=== PATIENT | male | born 2000 | race Caucasian/White ===

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

== ENCOUNTER 2022-06-15 21:35 | Emergency (ER) | payer MEDICAID, SELFPAY ==
[2022-06-15 21:36] VITALS: BP 185/96; PULSE 94; RESP 16; TEMP 37.5; O2SAT 97; BMI 36.8
--- NOTE | 2022-06-15 21:52 | EDS_ITS ---
HPI HPI - GI History of Present Illness Chief Complaint: Abd Pain Narrative Narrative: 22-year-old male who denies significant past medical history presents with abdominal pain that he has had since 930 or 10:00 this morning, almost 12 hours ago. Is been relatively constant in the left lower quadrant to right lower quadrant. He denies any fever or chills. He is nauseated but has not vomited. The nausea waxes and wanes. He was able to take a nap today but when he woke up his abdominal pain became more intense. He describes it more as dull and achy on the left greater than right. States that he feels like he has to have a bowel movement but cannot. He denies any dysuria or hematuria. No prior abdominal surgeries. However, his mother states that her family is known for having the appendix on the wrong side or it being twisted. Currently, he states his nausea has improved. No exacerbating or alleviating factors. [facility] Medical History Chronic neck and back pain Knee pain Home Medications NK 05/04/20 [History Last Taken Unknown] Allergy/AdvReac Type Severity Reaction Status Date / Time Penicillins Allergy Hives Verified 06/15/22 21:39 Social History Smoking Status: Never smoker ROS ROS ED ROS Narrative Constitutional: No fever, no chills. HEENT: No sore throat. No neck pain. No loss of vision. No rhinorrhea. Cardiovascular: No chest pain. No palpitations. No pedal edema. Respiratory: No cough, no shortness of breath. Abdominal: Left lower quadrant greater than right lower quadrant abdominal pain. Positive nausea. No vomiting. Genitourinary: No dysuria. No hematuria. Musculoskeletal: No myalgias. No arthralgias. Neurologic: No headaches. No dizziness. No lightheadedness. Skin: No rash. No change in color. Psychiatric: No depression. No anxiety. EXAM Physical Exam Narrative Exam Narrative: Afebrile. Vital signs noted. HEENT: Normocephalic. Atraumatic. PERRL, EOMI. Neck soft and supple. No point tenderness or step off. Cardiovascular: Regular rate and rhythm. No murmurs, rubs, or gallops appreciated. Respiratory: No tachypnea. Lungs clear to auscultation bilaterally. Gastrointestinal: Abdomen soft, mild tenderness left lower quadrant to suprapubic, minimal right lower quadrant, negative Rovsing sign, no pain over McBurney's point, with normoactive bowel sounds. No rebound or guarding. Neurological: Awake. Alert. Nonfocal, nonlateralizing. Skin: No rash. Normal color. No pallor. Musculoskeletal: No pedal edema. Full range of motion extremities. Const Vital Signs: 06/15/22 21:36 Temperature 99.5 F H Temperature Source Temporal Pulse Rate 94 Respiratory Rate 16 Blood Pressure 185/96 H Blood Pressure Mean 125 Pulse Ox 97 Oxygen Delivery Method Room Air MDM MDM MDM Narrative Medical decision making narrative: Major concern is for appendicitis versus diverticulitis versus urinary tract infection. Patient has a low-grade temperature/fever of 99.5 ?F currently. Comprehensive work-up was pursued. He declined 6 or antinausea medication. I will obtain a CBC, BMP, urinalysis, and CT with IV contrast. I reviewed the patient's laboratory work. He has a normal white count of 9.0, hemoglobin slightly hemoconcentrated at 16.7 with hematocrit 45.5. Platelet count normal at 208. BMP shows BUN of 15 and normal creatinine of 1.03, glucose appropriately elevated at 120, normal anion gap of 8. Urinalysis is negative for infection, negative ketones, 0 WBCs and 0 RBCs. I received a call from the radiologist regarding the CT scan results. I had reviewed the films and did note polycystic kidney disease. Additionally, there is a 4 cm right renal mass which will require outpatient ultrasound follow-up closely. Radiologist stated that the appendix appeared normal. I had a discussion with the patient and his mother. He did not know that he had polycystic kidney disease. Additionally, I stressed the importance of follow-up with primary care for outpatient ultrasound with the patient. He states he currently does not have a primary care physician but wanted to see [facility] physicians. I will discuss the patient with the on-call physician, Dr. Shadia Nieves for outpatient follow-up. I feel he can be discharged safely home. His blood pressure is now 145/75. Return instructions to the emergency department were reviewed. Disposition is discharged home in stable condition. History & Record Review Discussion w/independent historian: Patient and Other (Mother) Lab Data Attestation: I reviewed the patient's lab results. Labs: Laboratory Results - last 24 hr 06/15/22 06/15/22 06/15/22 22:05 22:10 22:10 WBC 9.0 RBC 5.33 Hgb 16.7 H Hct 45.5 MCV 85.4 MCH 31.3 MCHC 36.7 H RDW Std Deviation 36.8 RDW Coeff of Angie 12.0 Plt Count 208 MPV 10.7 Immature Gran % (Auto) 0.200 Neut % (Auto) 78.7 H Lymph % (Auto) 12.8 L Giles % (Auto) 8.0 Eos % (Auto) 0.1 Baso % (Auto) 0.2 Absolute Neuts (auto) 7.1 Absolute Lymphs (auto) 1.15 Nucleated RBC % 0 Sodium 137 Potassium 3.7 Chloride 103 Carbon Dioxide 26.0 Anion Gap 8 BUN 15 Creatinine 1.03 Estim Creat Clear Calc 128.21 Est GFR (MDRD) Af Amer 117 Est GFR (MDRD) Non-Af 97 BUN/Creatinine Ratio 14.6 Glucose 120 H Calcium 9.1 Urine Color Yellow Urine Clarity Clear Urine pH 6.0 Ur Specific [place] 1.015 Urine Protein Negative Urine Glucose (UA) Normal Urine Ketones Negative Urine Occult Blood Negative Urine Nitrite Negative Urine Bilirubin Negative Urine Urobilinogen 1 H Ur Leukocyte Esterase Negative Urine RBC 0 SEEN Urine WBC 0 SEEN Ur Squamous Epith Cells 0 SEEN Urine Bacteria 0 SEEN Urine Mucus 0 SEEN Radiography Diagnostic Testing: Clinical Impression(s) from Imaging Studies Abdomen/Pelvis CT 06/15/22 21:52 IMPRESSION: 1. Indeterminate 4 cm cystic structure in the right kidney is RCC until proven otherwise. Recommend follow-up with renal ultrasound. 2. Polycystic kidneys. 3. Mild splenomegaly. Electronically Signed: Tylor Napoles MD at 22:53 EST , ADDENDUM: 06/15/22 2803 IMPRESSION: 1. Indeterminate 4 cm cystic structure in the right kidney is RCC until proven otherwise. Recommend follow-up with renal ultrasound. 2. Polycystic kidneys. 3. Mild splenomegaly. N.B. : The above Results were Read Back by Tylor Napoles MD to Jose Miguel Mcnair MD, and understanding confirmed on 06/15/2022 22:59:59 (ET). Electronically Signed: Tylor Napoles MD at 22:53 EST , Discharge Plan Triage Chief Complaint: Abd Pain ED Provider: Jose Miguel Mcnair Dx/Rx/DC Orders Clinical Impression: Abdominal pain, Polycystic kidney disease, Mass of right kidney Instructions: Kidney Problems, ED Tumor, Uncertain Cause, ED Abdominal Pain Unkn Cause Male... Prescriptions: No Action NK Primary Care Provider: Care Physician,Azul Primary Referrals: Ben Urena DO [Non-Staff] - Jing Nieves DO [Med Staff - [place] [facility]] - 5-7 Days Activity Restrictions/Additional Instructions: You had an abnormal CT finding. It appears that you have multiple cysts on your kidneys. Additionally, a right renal mass of approximately 4 cm was detected. You will require outpatient follow-up with an ultrasound. Please see your primary care provider regarding this. Do not neglect this CT finding. Disposition Disposition: Home, Self Care
--- NOTE | 2022-06-15 21:52 | CT_ITS ---
We are attempting to reach an attending provider to discuss findings. An addendum with communication details will be sent when the communication is complete. INDICATION: Abdominal Pain, left lower quadrant EXAMINATION: CT ABDOMEN AND PELVIS WITH CONTRAST - CT Abdomen And Pelvis W/ Contrast Injection TECHNIQUE: Helically acquired images were obtained of the abdomen and pelvis following IV contrast. A radiation dose optimization technique was used for this scan. IV Contrast dosage and agent: 100 mL Isovue-370 Oral contrast: None. COMPARISON: None. FINDINGS: LOWER CHEST: Lung bases are clear. No cardiomegaly or pericardial effusion. LIVER: Homogeneous. No focal mass. GALLBLADDER AND BILIARY TREE: No calcified gallstones. No gallbladder distension or wall edema. No intra- or extrahepatic biliary ductal dilation. PANCREAS: No focal cystic or solid mass. SPLEEN: Mild splenomegaly. ADRENAL GLANDS: No nodules. KIDNEYS AND URETERS: Normal renal size and position. Numerous bilateral cysts. A 4.2 cm right renal cyst measures 42 Hounsfield units on portal phase and delayed images. No hydronephrosis. PERITONEUM: No ascites or free air. No other fluid collection. BOWEL: No evidence of acute appendicitis. No stomach or bowel distension. No focal inflammatory change. LYMPH NODES: No enlarged mesenteric or retroperitoneal lymph nodes. VESSELS: Aorta is non-dilated. URINARY BLADDER: Unremarkable. REPRODUCTIVE ORGANS: No pelvic masses. ABDOMINAL WALL: No discrete abdominal or pelvic wall hernia. BONES: No lytic or blastic abnormality. CT/Abdomen/Pelvis W IV Cont ONLY IMPRESSION: 1. Indeterminate 4 cm cystic structure in the right kidney is RCC until proven otherwise. Recommend follow-up with renal ultrasound. 2. Polycystic kidneys. 3. Mild splenomegaly. Electronically Signed: Tylor Napoles MD at 22:53 EST ,
[2022-06-15 22:08] LABS: Bacteria 0 SEEN /hpf (None Seen); Mucous, Urine 0 SEEN /hpf (<or=2+); Red Blood Cells-Urine 0 SEEN /hpf (0-5); Squamous Epithelial Cells - UA 0 SEEN /hpf (0-5); White Blood Cells 0 SEEN /hpf (0-5)
[2022-06-15 22:13] LABS: Color, Urine Yellow (Yellow); Glucose, Dipstick Normal (Normal); Ketone-Dipstick Negative (Negative); Leukocyte Esterase-Dipstick Negative /ul (Negative); Nitrite-Dipstick Negative (Negative); Occult Blood-Urine Negative /ul (Negative); Protein-Dipstick Negative (Negative); Specific Gravity, Urine 1.015 (1.002-1.030); Urine Bilirubin Dipstick Negative (Negative); Urine Clarity Clear (Clear); Urine Urobilinogen 1 mg/dl (Normal)
[2022-06-15 22:15] LABS: Absolute Lymphocyte Count 1.15 X10^3/uL (0.83-4.51); Absolute Neutrophil Count 7.1 X10^3/uL (2.0-7.7); Basophil# 0.02 X10^3/uL; Basophil% 0.2 % (0-1); Eosinophil# 0.01 X10^3/uL; Eosinophils% 0.1 % (0-5); Hematocrit 45.5 % (40-54); Hemoglobin 16.7 g/dL (13.0-16.5); Lymphocyte # 1.15 X10^3/ul (0.83-4.51); Lymphocyte % 12.8 % (19-41); Mean Corp Hgb Conc 36.7 g/dL (32-36); Mean Corpuscular Hgb 31.3 pg (27.0-32.0); Mean Corpuscular Volume 85.4 fL (80-94); Mean Platelet Vol. 10.7 fl (6.2-12.0); Monocyte# 0.72 X10^3/uL; NRBC Flagged by Analyzer 0 % (0-5); Neutrophil # 7.05 X10^3/uL (2.7-7.7); Neutrophil % 78.7 % (47-70); Platelet Count 208 K/mm3 (150-450); RBC Distribution Width SD 36.8 fl (35.1-43.9); Red Blood Count 5.33 M/mm3 (4.6-6.2)
[2022-06-15 22:29] LABS: Anion Gap 8 (5-15); BUN 15 mg/dL (7-18); BUN/Creat Ratio 14.6 RATIO (10-20); Calcium,Total 9.1 mg/dL (8.5-10.1); Chloride 103 mmol/L (98-107); Creatinine, Serum 1.03 mg/dL (0.70-1.30); EST Glomerular Filtration Rate 97 mL/min (>60); Est Glom Filt Rate - Afr Amer 117 mL/min (>60); Estimated Creatinine Clearance 128.21 ml/min; Glucose 120 mg/dL (74-106); Potassium 3.7 mmol/L (3.5-5.1); Sodium Level 137 mmol/L (136-145)
[2022-06-15] MEDS: 0.9% Normal Saline 1,000 ML 1000 ML IV (22:33)
[2022-06-15 23:21] VITALS: BP 145/75; PULSE 83; RESP 16; O2SAT 97
== END 2022-06-15 23:54 | disposition home or self-care (01) ==
PROVIDERS: Emergency Provider Emergency Medicine; Visit Provider Emergency Medicine
DX: R10.9 Unspecified abdominal pain (principal); Q61.3 Polycystic kidney, unspecified; N28.89 Other specified disorders of kidney and ureter; G89.29 Other chronic pain; M54.2 Cervicalgia
CPT/HCPCS: 74177; 80048; 81001; 85025; 96360; 99283; J7030; Q9967

== ENCOUNTER → 2022-12-16 | Outpatient (CLI) | payer MEDICAID, SELFPAY ==
[2022-12-16 13:45] LABS: Protein, Urine (Random) 13.7 mg/dL (<11.9); Protein:Creat Ratio 145 mg/g CRE (0-200)
[2022-12-16 13:48] LABS: Anion Gap 4 (5-15); BUN 13 mg/dL (7-18); BUN/Creat Ratio 13.7 RATIO (10-20); Calcium,Total 8.9 mg/dL (8.5-10.1); Chloride 107 mmol/L (98-107); Creatinine, Serum 0.95 mg/dL (0.70-1.30); EST Glomerular Filtration Rate 106 mL/min (>60); Est Glom Filt Rate - Afr Amer 128 mL/min (>60); Glucose 131 mg/dL (74-106); Potassium 3.8 mmol/L (3.5-5.1); Sodium Level 140 mmol/L (136-145)
== END | disposition home or self-care (01) ==
LOC: LAB 11:34
PROVIDERS: Referring Provider Internal Medicine Nephrology; Visit Provider Internal Medicine Nephrology
DX: Q61.3 Polycystic kidney, unspecified (principal)
CPT/HCPCS: 36415; 80048; 82570; 84156

== ENCOUNTER → 2023-03-13 | Outpatient (CLI) | payer MEDICAID, SELFPAY ==
[2023-03-13 16:45] LABS: Anion Gap 5 (5-15); BUN 11 mg/dL (7-18); BUN/Creat Ratio 11.3 RATIO (10-20); Calcium,Total 8.5 mg/dL (8.5-10.1); Chloride 103 mmol/L (98-107); Creatinine, Serum 0.98 mg/dL (0.70-1.30); EST Glomerular Filtration Rate 102 mL/min (>60); Est Glom Filt Rate - Afr Amer 124 mL/min (>60); Glucose 122 mg/dL (74-106); Potassium 3.6 mmol/L (3.5-5.1); Protein, Urine (Random) 15.4 mg/dL (<11.9); Protein:Creat Ratio 93 mg/g CRE (0-200); Sodium Level 139 mmol/L (136-145)
== END | disposition home or self-care (01) ==
LOC: LABSPEC 15:39
PROVIDERS: Referring Provider Internal Medicine Nephrology; Visit Provider Internal Medicine Nephrology
DX: Q61.3 Polycystic kidney, unspecified (principal)
CPT/HCPCS: 36415; 80048; 82570; 84156

== ENCOUNTER → 2023-03-28 | Outpatient (CLI) | payer MEDICAID, SELFPAY ==
--- NOTE | 2023-03-28 17:13 | MRI_ITS ---
STUDY: MRA OF THE HEAD WITHOUT CONTRAST REASON FOR EXAM: Male, 22 years old. INTRACRANIAL ANEURYSM TECHNIQUE: 3-D [id number] (TOF) imaging was performed with MIPs. The study was performed unenhanced. COMPARISON: None. FINDINGS: Normal bilateral petrous carotid arteries. Normal right cavernous carotid artery with a normal supraclinoid bifurcation. Normal left cavernous carotid artery with a normal supraclinoid bifurcation. Normal right A1 segments of the anterior cerebral artery. Normal left A1 segments of the anterior cerebral artery. Anterior communicating artery not visualized consistent with normal variant). Normal bilateral A2 segments of the anterior cerebral arteries. Normal right M1 and M2 segments of the middle cerebral arteries, with a normal M1 bifurcation. Normal left M1 and M2 segments of the middle cerebral arteries, with a normal M1 bifurcation. Normal right posterior communicating artery (PCOM). Nonvisualized left posterior communicating artery consistent with normal variant Normal bilateral vertebral arteries. Normal basilar artery with a normal basilar bifurcation. The visualized bilateral superior cerebellar (SCA) arteries are normal. Normal bilateral P1, P2 and visualized P3 segments of the posterior cerebral arteries. There is no demonstrated aneurysm of the ramona of [place]ix. There is no major vessel occlusion or hemodynamically significant stenosis. . MRI/MRA Head ONLY without Contrast IMPRESSION: Normal MRA of the head Electronically Signed: Ryder Zhu MD at 18:00 EST ,
== END | disposition home or self-care (01) ==
LOC: MRI 16:43
PROVIDERS: Referring Provider Internal Medicine Nephrology; Visit Provider Internal Medicine Nephrology
DX: Q61.3 Polycystic kidney, unspecified (principal)
CPT/HCPCS: 70544

== ENCOUNTER 2024-05-09 20:07 | Emergency (ER) | payer MEDICAID, SELFPAY ==
[2024-05-09 20:08] VITALS: BP 175/80; PULSE 98; RESP 16; TEMP 37.2; O2SAT 98; BMI 36.0
--- NOTE | 2024-05-09 20:33 | EX.ED.DYSGE1 ---
HPI History of Present Illness Chief Complaint: General Illness Informant: patient Narrative Narrative: Presents with increasing cough and dyspnea. Symptoms started yesterday mild myalgias mild headache no fevers. Unable to cough anything up. No vomiting or diarrhea. Sick contacts with coworkers. Got a shower this evening reported increasing dyspnea therefore came here. No asthma no tobacco history. Currently improved symptoms. No chest pains. Prior similar symptoms: No PFSH PFSH Medical History Chronic neck and back pain Knee pain Home Medications ?Medication ?Instructions ?Recorded ?Last Taken ?Type NK 05/04/20 Unknown History Allergy/AdvReac Type Severity Reaction Status Date / Time Penicillins Allergy Hives Verified 05/09/24 20:11 Social History Smoking Status: Never smoker ROS ROS ED Constitutional Constitutional ED: Denies chills, fever(s) or sweats ENT ENT ED: Denies sore throat Cardiovascular Cardiovascular: Denies chest pain, leg edema, palpitations or racing heartbeat Respiratory/Chest Respiratory/Chest: Reports cough and dyspnea; Denies dyspnea on exertion Gastrointestinal Gastrointestinal: Denies abdominal pain, diarrhea, nausea or vomiting Genitourinary Genitourinary ED: Denies dysuria, hematuria or urinary frequency Musculoskeletal Musculoskeletal: Reports myalgias; Denies back pain, extremity pain or neck pain Integumentary Denies rash or wounds Neurologic Neurologic: Reports headache(s); Denies paresthesias or weakness EXAM Physical Exam Const Vital Signs: 05/09/24 20:08 Temperature 98.9 F Temperature Source Oral Pulse Rate 98 Respiratory Rate 16 Blood Pressure 175/80 H Blood Pressure Mean 111 Pulse Ox 98 Oxygen Delivery Method Room Air Positive well nourished and well developed General Appearance ED: well developed and NAD HEENT Reports moist mucous membranes normocephalic and atraumatic Eyes General Eye ED: Yes normal appearance of both eyes Neck full ROM Neck Narrative: No meningismus Chest Wall Chest: Negative for tenderness Resp normal respiratory effort and normal air movement Effort and Inspection: symmetric chest movement; Negative for respiratory distress Cardio regular rate, regular rhythm and no murmurs Peripheral Pulses: pulses 2+ throughout GI normal to inspection, nondistended, normoactive bowel sounds and non-tender Palpation: Negative for guarding or rebound tenderness present Extremity normal to inspection General Extremety ED: Negative for edema or tenderness General Extremity: Negative for edema Neuro oriented x3, CN's II-XII intact bilaterally and no sensory deficits noted Sensorium / Orientation: awake and alert Skin no rashes or lesions noted and no wounds MDM MDM MDM Narrative Medical decision making narrative: Interventions / MDM: Differential diagnosis: Viral syndrome. Elevated blood pressure. Discussed viral syndrome. Diagnosis considered but do not suspect: Pulm embolism however PERC criteria negative. No hypoxia or tachycardia. My EKG interpretation: N/A Imaging independently reviewed and interpreted by myself: 2 view chest x-ray: No acute process. External documents reviewed: N/A Test considered but not ordered:N/A ED course: Afebrile 98% on room air. Blood pressure elevated at 175/80. Cough since yesterday dyspnea. Normal lung sounds. Reports myalgias and headache. No meningismus. Two-view chest x-ray ordered, COVID flu and RSV ordered for further evaluation. Viral swabs negative. Chest x-ray negative. Remains symptom-free. Discussed adjunct therapies to help with cough. Outpatient follow-up given. Re-evaluation: stable Disposition discussed with patient/family/significant other: Patient Case discussed with consulting clinician: N/A This note was generated with [employer] dictation software. It may contain incorrect words, spelling, and punctuation that were not noted in checking the note before signing. Discharge Plan Triage Chief Complaint: General Illness ED Provider: Danish Goldstein Dx/Rx/DC Orders Clinical Impression: Acute viral syndrome, Cough Instructions: ED URI, Viral, No Abx (Adult) Prescriptions: No Action NK Primary Care Provider: Care Physician,No Primary Referrals: Dania Aguayo MD [Med Staff - Technical Implementation Lead] - 1-2 Weeks Care Physician,No Primary [Primary Care Provider] - Activity Restrictions/Additional Instructions: COVID, influenza, RSV negative. Chest x-ray negative. Monitor symptoms, adjunct treatments as discussed. Follow-up with your doctor. Print Language: Tamazight Disposition Disposition: Home, Self Care Discharge Date/Time: 05/09/24 21:48
--- NOTE | 2024-05-09 20:35 | RAD_ITS ---
INDICATION: cough EXAMINATION/TECHNIQUE: X-RAY - XR Chest 2 Views COMPARISON: None. FINDINGS: The lungs are clear. The cardiomediastinal silhouette is unremarkable. No pleural effusion or pneumothorax. No acute osseous abnormalities. RAD/Chest PA and Lateral IMPRESSION: No acute radiographic abnormalities. Electronically Signed: Андрей Malave MD at 22:19 EST ,
== END 2024-05-09 21:48 | disposition home or self-care (01) ==
PROVIDERS: Emergency Provider Emergency Medicine; Visit Provider Emergency Medicine
DX: B34.9 Viral infection, unspecified (principal); R05.9 Cough, unspecified
CPT/HCPCS: 71046; 87631; 99282

== ENCOUNTER → 2024-10-14 | Outpatient (CLI) | payer MEDICAID, SELFPAY ==
[2024-10-14 17:37] LABS: Protein, Urine (Random) 9.1 mg/dL (0.0-12.0); Protein:Creat Ratio 77 mg/g CRE (0-200)
[2024-10-14 17:43] LABS: Albumin, Serum 4.4 g/dL (3.5-5.0); Anion Gap 11 (5-15); BUN 15 mg/dL (4-19); BUN/Creat Ratio 14.3 RATIO (10-20); Calcium,Total 9.5 mg/dL (7.6-11.0); Carbon Dioxide 26.5 mmol/L (21.0-32.0); Chloride 103 mmol/L (98-108); Creatinine, Serum 1.06 mg/dL (0.70-1.20); EST Glomerular Filtration Rate 101 (>60); Glucose 107 mg/dL (70-99); Phosphorus 2.4 mg/dL (2.7-4.5); Potassium 4.1 mmol/L (3.3-5.1); Sodium Level 140 mmol/L (133-145)
== END | disposition home or self-care (01) ==
LOC: LAB 16:12
PROVIDERS: Referring Provider Internal Medicine Nephrology; Visit Provider Internal Medicine Nephrology
DX: Q61.3 Polycystic kidney, unspecified (principal)
CPT/HCPCS: 36415; 80069; 82570; 84156